=== PATIENT | female | born 1930 | race Two or more races ===

== ENCOUNTER → 2017-11-25 | Day surgery (SDC) | payer OTHER ==
[~2017-11-25] MED LIST: DEXAMETHASONE SOD PHOS 4 MG/ML VIAL ONE; EPINEPHrine HCL (1:1000) 1 MG/ML VIAL ONE; LACTATED RINGER'S 1000 ML INJ 1,000 ML ONE; MOXIFLOXACIN 0.5% OPHT SOLN 3 ML BTL ONE; ONDANSETRON HCL 4 MG/2 ML VIAL IV PUSH ONE; PHENYLEPHRINE HCL 10% OPTH SOLN 5 ML BTL ONE; PROPOFOL 200 MG/20 ML AMP IV ONE; SODIUM CHLORIDE 0.9% INJ 10 ML ONE; TETRACAINE 0.5% OPTH SOLN 15 ML BTL ONE; TOBRAMYCIN/DEXAMETHASONE OPTH OINT 3.5 GM TUBE ONE; TRIAMCINOLONE ACETONIDE 40 MG/ML VIAL ONE; ceFAZolin INJ 1,000 MG VIAL ONE; prednisoLONE ACETATE 1% OPHT SUSP 5 ML BTL ONE
--- NOTE | 2017-11-30 07:50 | TN ---
cc: CHRISTIANO ORR DATE OF SURGERY: 11/25/2017 DATE OF : 34 PREOPERATIVE DIAGNOSIS: Dislocated nuclear sclerotic cataract fragment, right eye. POSTOPERATIVE DIAGNOSIS Dislocated nuclear sclerotic cataract fragment, right eye. PROCEDURE Pars plana vitrectomy, pars plana lensectomy, insertion of intravitreal Kenalog, superior peripheral iridotomy, right eye. COMPLICATIONS None BLOOD LOSS Less than 1 cc[address] Hicks. INDICATIONS FOR PROCEDURE This is a delightful patient who presented after undergoing cataract surgery. Unfortunately a portion of the nuclear sclerotic cataract was dislocated into the posterior chamber. The patient elected for surgical correction. PROCEDURE NOTE Informed form consent was obtained, the patient was brought to the operating room. General anesthesia was established. The right eye was prepped and draped in sterile fashion with Betadine in the conjunctival fornix. A three port pars plana vitrectomy was established with self-retaining infusion cannula. Core vitreous was evacuated and vitreous traction to the dislocated cataract was relieved. The cataract fragment was removed with the fragmatome via the pars plana. The remaining vitreous traction was relieved and the vitreous shaped with vitrector. Scleral depression examination revealed no untreated retinal holes, tears or detachments. Peripheral iridotomy was made. Intravitreal Kenalog was instilled. Trocars removed. Sclerotomies closed and subconjunctival injection of Ancef and dexamethasone were given. The eye was patched with Tobramycin ointment. The patient was brought to the recovery room and will continue follow up with [facility] for her postoperative care. MD JEAN-PIERRE George/TRISHA /1:24 PM /7:22 AM
== END | disposition home or self-care (01) ==
LOC: ESDC 06:52
PROVIDERS: ATTEND Ophthalmology
DX: H59.021 Cataract (lens) fragments in eye following cataract surgery, right eye (principal); Z01.810 Encounter for preprocedural cardiovascular examination
CPT/HCPCS: 66850; 93005; J0171; J0690; J1100; J2405; J3010; J3301; J7120